=== PATIENT | female | born 2000 | race Two or more races ===

== ENCOUNTER 2024-11-07 17:57 | Emergency (ER) | payer BC ==
[~2024-11-07] VITALS: Ht 162.6 cm; Wt 56.7 kg
[2024-11-07 18:12] VITALS: BP 126/87; O2SAT 99
[2024-11-07 19:52] LABS: PH,URINE 6.5 (5.0-8.0); URINE APPEARANCE Cloudy; URINE BILIRRUBIN Negative (NEGATIVE); URINE BLOOD Negative; URINE COLOR Yellow; URINE GLUCOSE Negative (NEGATIVE); URINE KETONE Negative (NEGATIVE); URINE LEUKOCYTE Small; URINE NITRATE Negative; URINE PROTEIN Negative (NEGATIVE); URINE UROBILINOGEN 0.2 E.U./dl
[2024-11-07 19:55] LABS: URINE EPITHELIAL CELLS 10.1 uL (0.0-38.8); URINE RBC 5.3 uL (0.0-20.8); URINE WBC 186.7 uL (0.0-23.2)
[2024-11-07 19:58] LABS: URINE CAST 0.29 uL (0.0-1.40)
[2024-11-07] MEDS ORDERED: BACTRIM DS TAB1 EACH PO (20:12)
[2024-11-07] MEDS ORDERED: FLUCONAZOLE200 MG PO (20:12)
== END 2024-11-07 20:33 | disposition home or self-care (01) ==
LOC: ER 17:59
PROVIDERS: Emergency Medicine
DX: N39.0 Urinary tract infection, site not specified (principal)